=== PATIENT | female | born 1970 | race African-American/Black ===

== ENCOUNTER 2024-11-28 15:27 | Emergency (ER) | payer OTHER ==
[~2024-11-28] VITALS: Ht 162.6 cm; Wt 44.9 kg
[2024-11-28 15:33] VITALS: BP 108/65; O2SAT 100
== END 2024-11-28 17:18 | disposition left against medical advice (07) ==
LOC: ER 15:33
DX: M79.672 Pain in left foot (principal); R22.42 Localized swelling, mass and lump, left lower limb; Z53.21 Procedure and treatment not carried out due to patient leaving prior to being seen by health care provider
CPT/HCPCS: A4606; A4663